=== PATIENT | male | born 1975 | race Hispanic/Latino ===

== ENCOUNTER 2016-11-12 21:35 | Emergency (ER) | payer BC ==
[2016-11-12 22:19] VITALS: BP 137/99; PULSE 88; RESP 18; TEMP 98.9; O2SAT 98
--- NOTE | 2016-11-12 23:07 | ED PDOC ---
Upper Extremity Pain/Injury Time Seen by Provider: 11/12/16 23:05 Chief Complaint (Nursing): Upper Extremity Problem/Injury Chief Complaint (Provider): right hand injury History Per: Patient History/Exam Limitations: no limitations Additional Complaint(s): 40yo M in Ed for eval of right hand 3rd digit swelling-states his ring became too tight now with swelling x 2 days and associated numbness./tingling to finger. Pt denies dec ROM or direct injury to finger. Past Medical History Reviewed: Historical Data, Nursing Documentation, Vital Signs Vital Signs: Last Vital Signs Temp 98.9 F 11/12/16 22:15 Pulse 88 11/12/16 22:15 Resp 18 11/12/16 22:15 BP 137/99 H 11/12/16 22:15 Pulse Ox 98 11/12/16 22:15 - Medical History PMH: No Chronic Diseases - Family History Family History: States: No Known Family Hx - Allergies Allergies/Adverse Reactions: Allergies Allergy/AdvReac Type Severity Reaction Status Date / Time No Known Allergies Allergy Verified 11/12/16 22:14 Review of Systems ROS Statement: Except As Marked, All Systems Reviewed And Found Negative Musculoskeletal: Positive for: Hand Pain Physical Exam - Reviewed Nursing Documentation Reviewed: Yes Vital Signs Reviewed: Yes - Physical Exam Appears: Positive for: Well, Non-toxic, No Acute Distress Skin: Positive for: Normal Color, Warm, DRY Cardiovascular/Chest: Positive for: Regular Rate, Rhythm Respiratory: Positive for: CNT, Normal Breath Sounds Extremity: Positive for: Other (left hand: 3rdigit-ring noted and finger swelling noted tednerness noted. good cap refill) Neurologic/Psych: Positive for: Alert, Oriented - ECG O2 Sat by Pulse Oximetry: 98 Medical Decision Making Medical Decision Making: ring cutter used to remove ring on digit successful. abrasion noted. wound cleaned. Disposition - Clinical Impression Clinical Impression: Tight ring on finger - Patient ED Disposition Is Patient to be Admitted: No Counseled Patient/Family Regarding: Diagnosis, Need For Followup - Disposition Disposition: Routine/Home Disposition Time: 23:09 Condition: STABLE Instructions: Swollen Joint (ED)
== END 2016-11-12 23:17 | disposition home or self-care (01) ==
LOC: H.ER 21:35
DX: S60.449A External constriction of unspecified finger, initial encounter (principal); W49.04XA Ring or other jewelry causing external constriction, initial encounter; Y92.89 Other specified places as the place of occurrence of the external cause